=== PATIENT | female | born 1940 | race Caucasian/White ===

== ENCOUNTER 2024-09-01 13:08 | Emergency (ER) | payer MEDICARE, OTHER, MEDICAID ==
[2024-09-01 13:27] VITALS: BP 107/73; PULSE 83
[2024-09-01 13:29] LABS: BASOPHILS ABSOLUTE AUTO 0.01 10^3/uL (0.00-0.10); BASOPHILS PERCENT AUTO 0.2 % (0.0-1.0); EOSINOPHILS ABSOLUTE AUTO 0.11 10^3/uL (0.10-0.30); EOSINOPHILS PERCENT AUTO 2.1 % (1.0-3.0); HEMATOCRIT 31.7 % (37.0-47.0); HEMOGLOBIN 10.1 g/dL (12.0-16.0); LYMPHOCYTES ABSOLUTE AUTO 0.76 10^3/uL (1.00-4.00); LYMPHOCYTES PERCENT AUTO 14.7 % (20.0-40.0); MEAN CORPUSCULAR HGB CONC 31.9 g/dL (32.0-36.0); MEAN CORPUSCULAR VOLUME 94.1 fL (82.0-92.0); MEAN PLATELET VOLUME 9.5 fL (7.4-10.4); MONOCYTES ABSOLUTE AUTO 0.58 10^3/uL (0.10-0.80); MONOCYTES PERCENT AUTO 11.2 % (2.0-8.0); NEUTROPHILS PERCENT AUTO 71.8 % (50.0-70.0); PLATELET COUNT,PLT 190 10^3/uL (150-400); RED BLOOD CELL COUNT 3.37 10^6/uL (3.80-5.50); WHITE BLOOD CELL COUNT,WBC 5.16 10^3/uL (5.00-10.00)
[2024-09-01 13:43] LABS: ALBUMIN 2.35 g/dL (3.40-5.00); BILIRUBIN TOTAL 0.3 mg/dL (0.2-1.0); CALCIUM 8.4 mg/dL (8.7-10.3); CARBON DIOXIDE,CO2 28.4 mmol/L (21.0-32.0); CREATININE 0.61 mg/dL (0.51-1.17); EST CRCL DRUG DOSING (CG) 69.14 mL/min; POTASSIUM,K 4.4 mmol/L (3.5-5.1); PROTEIN TOTAL,TP 5.9 g/dL (6.4-8.2)
== END 2024-09-01 15:20 ==
LOC: KA.ED 13:08
DX: H53.2 Diplopia (principal); R42 Dizziness and giddiness; J44.9 Chronic obstructive pulmonary disease, unspecified; E66.9 Obesity, unspecified; Z68.21 Body mass index [BMI] 21.0-21.9, adult; Z90.49 Acquired absence of other specified parts of digestive tract; Z79.899 Other long term (current) drug therapy
CPT/HCPCS: 70450; 80053; 85025; 93005; 99285

== ENCOUNTER 2024-11-22 11:11 | Inpatient (IN) | payer MEDICARE, OTHER, MEDICAID ==
[2024-11-22] MEDS ORDERED: Sodium Chloride 0.9% 10 ML Syringe FLUSH PRN (11:15)
[2024-11-22 11:28] LABS: BASOPHILS ABSOLUTE AUTO 0.02 10^3/uL (0.00-0.10); BASOPHILS PERCENT AUTO 0.3 % (0.0-1.0); EOSINOPHILS ABSOLUTE AUTO 0.08 10^3/uL (0.10-0.30); HEMATOCRIT 32.8 % (37.0-47.0); HEMOGLOBIN 10.1 g/dL (12.0-16.0); IMMATURE GRAN ABSOLUTE AUTO 0.01 10^3/uL (0.00-0.04); IMMATURE GRAN PERCENT AUTO 0.1 % (0.0-0.4); LYMPHOCYTES ABSOLUTE AUTO 0.57 10^3/uL (1.00-4.00); LYMPHOCYTES PERCENT AUTO 7.1 % (20.0-40.0); MEAN CORPUSCULAR HEMOGLOBIN 29.9 pg (27.0-31.0); MEAN CORPUSCULAR HGB CONC 30.8 g/dL (32.0-36.0); MEAN PLATELET VOLUME 9.4 fL (7.4-10.4); MONOCYTES ABSOLUTE AUTO 0.73 10^3/uL (0.10-0.80); MONOCYTES PERCENT AUTO 9.1 % (2.0-8.0); NEUTROPHILS ABSOLUTE AUTO 6.58 10^3/uL (2.50-7.00); NEUTROPHILS PERCENT AUTO 82.4 % (50.0-70.0); PLATELET COUNT,PLT 187 10^3/uL (150-400); RED BLOOD CELL COUNT 3.38 10^6/uL (3.80-5.50); RED CELL DISTRIBUTION WIDTH 13.6 % (11.5-14.5); WHITE BLOOD CELL COUNT,WBC 7.99 10^3/uL (5.00-10.00)
[2024-11-22 11:46] LABS: ALBUMIN 2.2 g/dL (3.40-5.00); ANION GAP 14.3 mmol/L (5-15); BILIRUBIN TOTAL 0.4 mg/dL (0.2-1.0); CALCIUM 9.6 mg/dL (8.7-10.3); CARBON DIOXIDE,CO2 28.9 mmol/L (21.0-32.0); CREATININE 0.46 mg/dL (0.51-1.17); EST CRCL DRUG DOSING (CG) 88.27 mL/min; POTASSIUM,K 4.2 mmol/L (3.5-5.1); PROTEIN TOTAL,TP 6.5 g/dL (6.4-8.2)
[2024-11-22 11:47] LABS: LACTIC ACID 1.2 mmol/L (0.4-2.0)
[2024-11-22 12:01] LABS: CORONAVIRUS COVID-19 NAA NEGATIVE (NEGATIVE); INFLUENZA A NAA NEGATIVE (NEGATIVE); INFLUENZA B NAA NEGATIVE (NEGATIVE)
[2024-11-22] MEDS: Sodium Chloride 0.9% 100 ML IV SCH (12:29)
[2024-11-22] MEDS: Iopamidol 755 Mg/ML 100 ML Bottle IV ONE (12:29)
[2024-11-22] MEDS: Albuterol/Ipratropium 3.0-0.5 MG/3 ML Neb Soln NEB ONE (12:31)
[2024-11-22] MEDS ORDERED: Acetaminophen 325 MG Tab PO PRN (16:59)
[2024-11-22] MEDS ORDERED: Ondansetron 4 MG/2 ML SDV IV PRN (16:59)
[2024-11-22] MEDS ORDERED: Sennosides/Docusate Sodium 50-8.6 MG Tab PO PRN (17:17)
[2024-11-22] MEDS: Cefepime 2 GM in Sodium Chloride 0.9% 50 ML IV SCH (19:17)
[2024-11-22] MEDS: guaiFENesin 600 MG Tab.ER PO SCH (21:06)
[2024-11-22] MEDS: Montelukast 10 MG Tab PO SCH (21:08)
[2024-11-22] MEDS: Melatonin 3 MG Tab PO SCH (21:08)
[2024-11-22] MEDS: Oxybutynin 5 MG Tab.ER PO SCH (21:08)
[2024-11-22] MEDS: Gabapentin 300 MG Cap PO SCH (21:08)
[2024-11-22] MEDS: Magnesium Oxide 500 MG Tab PO SCH (21:09)
[2024-11-22] MEDS: Doxycycline Monohydrate 100 MG Cap PO SCH (21:25)
[2024-11-22] MEDS ORDERED: methylPREDNISolone Sod Succ 40 MG in Sodium Chloride 0.9% 100 ML IV SCH (22:00)
[2024-11-22] MEDS: methylPREDNISolone Sodium Succinate 40 MG/1 ML SDV IVPUSH SCH (22:47)
[2024-11-22] MEDS: Albuterol/Ipratropium 3.0-0.5 MG/3 ML Neb Soln NEB SCH (23:00)
[2024-11-23] MEDS: Pantoprazole 40 MG Tab.CR PO SCH (07:24)
[2024-11-23 07:42] LABS: ANION GAP 12.2 mmol/L (5-15); CALCIUM 9.4 mg/dL (8.7-10.3); CREATININE 0.39 mg/dL (0.51-1.17); EST CRCL DRUG DOSING (CG) 104.11 mL/min; POTASSIUM,K 5.2 mmol/L (3.5-5.1)
[2024-11-23 07:49] LABS: HEMATOCRIT 29.7 % (37.0-47.0); HEMOGLOBIN 9.8 g/dL (12.0-16.0); MEAN CORPUSCULAR HEMOGLOBIN 30.1 pg (27.0-31.0); MEAN CORPUSCULAR VOLUME 91.1 fL (82.0-92.0); MEAN PLATELET VOLUME 9.1 fL (7.4-10.4); PLATELET COUNT,PLT 198 10^3/uL (150-400); RED BLOOD CELL COUNT 3.26 10^6/uL (3.80-5.50); RED CELL DISTRIBUTION WIDTH 13.4 % (11.5-14.5); WHITE BLOOD CELL COUNT,WBC 6.16 10^3/uL (5.00-10.00)
[2024-11-23 08:19] LABS: SLIDE REVIEW YES
[2024-11-23 08:20] LABS: BAND PERCENT MAN 0 % (4-12); BASOPHILS PERCENT MAN 0 % (0-1); EOSINOPHILS PERCENT MAN 0 % (1-3); LYMPHOCYTES % ATYPICAL MANUAL 0; LYMPHOCYTES PERCENT MAN 7 % (20-40); MONOCYTES PERCENT MAN 0 % (2-8); SEG NEUTROPHILS PERCENT MAN 93 % (50-70)
[2024-11-23 08:21] LABS: ELLIPTOCYTES 1+ SLIGHT
[2024-11-23 08:22] LABS: GIANT PLATELETS FEW; PLATELET COUNT ESTIMATE ADEQUATE
[2024-11-23] MEDS: Calcium Polycarbophil 625 MG Tab PO SCH (08:39)
[2024-11-23] MEDS: PROPYLENE GLYCOL EYEBOTH SCH (08:39)
[2024-11-23] MEDS: GLYCERIN EYEBOTH SCH (08:39)
[2024-11-23] MEDS: Aspirin 81 MG Tab.EC PO SCH (08:39)
[2024-11-23] MEDS: Furosemide 20 MG Tab PO SCH (08:40)
[2024-11-23] MEDS: Ferrous Sulfate 325 MG Tab PO SCH (08:40)
[2024-11-23] MEDS: DULoxetine 30 MG Cap PO SCH (08:40)
[2024-11-23] MEDS ORDERED: Calcium Polycarbophil 625 MG Tab PO SCH (09:00)
[2024-11-24 08:02] LABS: ANION GAP 8.9 mmol/L (5-15); CALCIUM 9.4 mg/dL (8.7-10.3); CARBON DIOXIDE,CO2 32.4 mmol/L (21.0-32.0); CREATININE 0.46 mg/dL (0.51-1.17); EST CRCL DRUG DOSING (CG) 88.27 mL/min; MAGNESIUM 1.7 mg/dL (1.8-2.4); POTASSIUM,K 5.3 mmol/L (3.5-5.1)
[2024-11-25] MEDS: predniSONE 20 MG Tab PO SCH (07:32)
[2024-11-26 08:33] LABS: BASOPHILS ABSOLUTE AUTO 0.01 10^3/uL (0.00-0.10); BASOPHILS PERCENT AUTO 0.2 % (0.0-1.0); EOSINOPHILS ABSOLUTE AUTO 0.06 10^3/uL (0.10-0.30); EOSINOPHILS PERCENT AUTO 1.3 % (1.0-3.0); HEMATOCRIT 34.8 % (37.0-47.0); HEMOGLOBIN 10.9 g/dL (12.0-16.0); IMMATURE GRAN ABSOLUTE AUTO 0.13 10^3/uL (0.00-0.04); IMMATURE GRAN PERCENT AUTO 2.8 % (0.0-0.4); LYMPHOCYTES ABSOLUTE AUTO 0.49 10^3/uL (1.00-4.00); LYMPHOCYTES PERCENT AUTO 10.5 % (20.0-40.0); MEAN CORPUSCULAR HEMOGLOBIN 30.2 pg (27.0-31.0); MEAN CORPUSCULAR HGB CONC 31.3 g/dL (32.0-36.0); MEAN CORPUSCULAR VOLUME 96.4 fL (82.0-92.0); MEAN PLATELET VOLUME 9.1 fL (7.4-10.4); MONOCYTES ABSOLUTE AUTO 0.66 10^3/uL (0.10-0.80); MONOCYTES PERCENT AUTO 14.2 % (2.0-8.0); PLATELET COUNT,PLT 338 10^3/uL (150-400); RED BLOOD CELL COUNT 3.61 10^6/uL (3.80-5.50); RED CELL DISTRIBUTION WIDTH 13.2 % (11.5-14.5); WHITE BLOOD CELL COUNT,WBC 4.65 10^3/uL (5.00-10.00)
[2024-11-26 08:48] LABS: ANION GAP 10.5 mmol/L (5-15); CALCIUM 9.7 mg/dL (8.7-10.3); CARBON DIOXIDE,CO2 31.9 mmol/L (21.0-32.0); CREATININE 0.48 mg/dL (0.51-1.17); EST CRCL DRUG DOSING (CG) 84.59 mL/min; POTASSIUM,K 4.4 mmol/L (3.5-5.1)
[2024-11-26 13:31] VITALS: BP 99/57; PULSE 80
== END 2024-11-26 13:30 | DRG 193 ==
LOC: KA.ED 11:11 → KA.MS 15:10
PROVIDERS: ADMIT Hospitalist; ATTEND Hospitalist
DX: J18.9 Pneumonia, unspecified organism (principal); J96.01 Acute respiratory failure with hypoxia; J44.0 Chronic obstructive pulmonary disease with (acute) lower respiratory infection; H26.9 Unspecified cataract; H91.90 Unspecified hearing loss, unspecified ear; J90 Pleural effusion, not elsewhere classified; K21.9 Gastro-esophageal reflux disease without esophagitis; M19.90 Unspecified osteoarthritis, unspecified site; M81.0 Age-related osteoporosis without current pathological fracture; F15.90 Other stimulant use, unspecified, uncomplicated; H53.9 Unspecified visual disturbance; E88.09 Other disorders of plasma-protein metabolism, not elsewhere classified; R09.89 Other specified symptoms and signs involving the circulatory and respiratory systems; R79.89 Other specified abnormal findings of blood chemistry; E66.9 Obesity, unspecified; D50.9 Iron deficiency anemia, unspecified; D64.9 Anemia, unspecified; Z66 Do not resuscitate; I71.21 Aneurysm of the ascending aorta, without rupture; Z79.2 Long term (current) use of antibiotics; Z98.49 Cataract extraction status, unspecified eye; Z86.16 Personal history of COVID-19; Z99.81 Dependence on supplemental oxygen; Z79.51 Long term (current) use of inhaled steroids; Z79.1 Long term (current) use of non-steroidal anti-inflammatories (NSAID); Z79.4 Long term (current) use of insulin; Z68.21 Body mass index [BMI] 21.0-21.9, adult; Z90.49 Acquired absence of other specified parts of digestive tract; Z98.890 Other specified postprocedural states; Z79.899 Other long term (current) drug therapy; Z79.82 Long term (current) use of aspirin
CPT/HCPCS: 0240U; 36415; 71045; 71275; 80048; 80053; 83605; 83735; 83880; 84484; 85025; 85379; 87040; 93005; 93010; 94640; 99223-GT; 99232-GT; 99233-GT; 99239-GT; 99284; 99285; A9270-GY; J0692; J2919; J3490; J7512; J7620-GY; Q3014; Q9967

== ENCOUNTER 2025-01-03 10:13 | Emergency (ER) | payer MEDICARE, OTHER, MEDICAID ==
[2025-01-03] MEDS ORDERED: Sodium Chloride 0.9% 10 ML Syringe FLUSH PRN (10:28)
[2025-01-03 10:39] VITALS: BP 110/74; PULSE 104
[2025-01-03 10:44] LABS: BASOPHILS ABSOLUTE AUTO 0.02 10^3/uL (0.00-0.10); BASOPHILS PERCENT AUTO 0.2 % (0.0-1.0); EOSINOPHILS ABSOLUTE AUTO 0.05 10^3/uL (0.10-0.30); EOSINOPHILS PERCENT AUTO 0.6 % (1.0-3.0); HEMATOCRIT 35.1 % (37.0-47.0); HEMOGLOBIN 11.1 g/dL (12.0-16.0); IMMATURE GRAN ABSOLUTE AUTO 0.01 10^3/uL (0.00-0.04); IMMATURE GRAN PERCENT AUTO 0.1 % (0.0-0.4); LYMPHOCYTES ABSOLUTE AUTO 0.71 10^3/uL (1.00-4.00); LYMPHOCYTES PERCENT AUTO 8.6 % (20.0-40.0); MEAN CORPUSCULAR HEMOGLOBIN 28.9 pg (27.0-31.0); MEAN CORPUSCULAR HGB CONC 31.6 g/dL (32.0-36.0); MEAN CORPUSCULAR VOLUME 91.4 fL (82.0-92.0); MEAN PLATELET VOLUME 8.9 fL (7.4-10.4); MONOCYTES ABSOLUTE AUTO 0.73 10^3/uL (0.10-0.80); MONOCYTES PERCENT AUTO 8.8 % (2.0-8.0); NEUTROPHILS ABSOLUTE AUTO 6.77 10^3/uL (2.50-7.00); NEUTROPHILS PERCENT AUTO 81.7 % (50.0-70.0); PLATELET COUNT,PLT 207 10^3/uL (150-400); RED BLOOD CELL COUNT 3.84 10^6/uL (3.80-5.50); RED CELL DISTRIBUTION WIDTH 13.5 % (11.5-14.5); WHITE BLOOD CELL COUNT,WBC 8.29 10^3/uL (5.00-10.00)
[2025-01-03 11:05] LABS: ALBUMIN 2.62 g/dL (3.40-5.00); ANION GAP 15.2 mmol/L (5-15); BILIRUBIN TOTAL 0.4 mg/dL (0.2-1.0); CALCIUM 9.8 mg/dL (8.7-10.3); CARBON DIOXIDE,CO2 28.9 mmol/L (21.0-32.0); CREATININE 0.49 mg/dL (0.51-1.17); EST CRCL DRUG DOSING (CG) 78.91 mL/min; POTASSIUM,K 4.1 mmol/L (3.5-5.1); PROTEIN TOTAL,TP 6.9 g/dL (6.4-8.2)
[2025-01-03] MEDS: Ondansetron 4 MG/2 ML SDV IVPUSH ONE (11:22)
[2025-01-03] MEDS: Sodium Chloride 0.9% 500 ML IV SCH (12:48)
== END 2025-01-03 13:50 ==
LOC: KA.ED 10:13
DX: A08.4 Viral intestinal infection, unspecified (principal); J44.0 Chronic obstructive pulmonary disease with (acute) lower respiratory infection; Z79.51 Long term (current) use of inhaled steroids; Z79.899 Other long term (current) drug therapy; Z79.4 Long term (current) use of insulin
CPT/HCPCS: 36415; 71045; 80053; 83605; 83880; 84484; 85025; 87428-QW; 93005; 93010; 96361; 96374; 99284; 99285-25; J2405; J7040

== ENCOUNTER 2025-01-31 14:19 | Emergency (ER) | payer MEDICARE, OTHER, MEDICAID ==
[2025-01-31] MEDS: Sodium Chloride 0.9% 1,000 ML IV ONE (14:52)
[2025-01-31] MEDS: Ondansetron 4 MG/2 ML SDV IVPUSH ONE (14:52)
[2025-01-31 14:55] LABS: BASOPHILS ABSOLUTE AUTO 0.03 10^3/uL (0.00-0.10); BASOPHILS PERCENT AUTO 0.6 % (0.0-1.0); EOSINOPHILS ABSOLUTE AUTO 0.06 10^3/uL (0.10-0.30); EOSINOPHILS PERCENT AUTO 1.1 % (1.0-3.0); HEMATOCRIT 34.8 % (37.0-47.0); HEMOGLOBIN 10.8 g/dL (12.0-16.0); IMMATURE GRAN ABSOLUTE AUTO 0.01 10^3/uL (0.00-0.04); IMMATURE GRAN PERCENT AUTO 0.2 % (0.0-0.4); LYMPHOCYTES ABSOLUTE AUTO 0.86 10^3/uL (1.00-4.00); LYMPHOCYTES PERCENT AUTO 16.4 % (20.0-40.0); MEAN CORPUSCULAR HEMOGLOBIN 29.3 pg (27.0-31.0); MEAN CORPUSCULAR VOLUME 94.6 fL (82.0-92.0); MEAN PLATELET VOLUME 10.2 fL (7.4-10.4); MONOCYTES ABSOLUTE AUTO 0.64 10^3/uL (0.10-0.80); MONOCYTES PERCENT AUTO 12.2 % (2.0-8.0); NEUTROPHILS ABSOLUTE AUTO 3.63 10^3/uL (2.50-7.00); NEUTROPHILS PERCENT AUTO 69.5 % (50.0-70.0); PLATELET COUNT,PLT 191 10^3/uL (150-400); RED BLOOD CELL COUNT 3.68 10^6/uL (3.80-5.50); WHITE BLOOD CELL COUNT,WBC 5.23 10^3/uL (5.00-10.00)
[2025-01-31 15:19] LABS: ALBUMIN 2.84 g/dL (3.40-5.00); BILIRUBIN TOTAL 0.4 mg/dL (0.2-1.0); C-REACTIVE PROTEIN 3.83 mg/dL (0.00-0.50); CALCIUM 9.8 mg/dL (8.7-10.3); CARBON DIOXIDE,CO2 27.2 mmol/L (21.0-32.0); CREATININE 0.47 mg/dL (0.51-1.17); EST CRCL DRUG DOSING (CG) 76.34 mL/min; MAGNESIUM 1.5 mg/dL (1.8-2.4); POTASSIUM,K 4.2 mmol/L (3.5-5.1)
[2025-01-31] MEDS: Magnesium Sulf/Wat 2 GM/50 mL 2 GM in Premix Bag 1 BAG IV ONE (15:24)
[2025-01-31 15:57] LABS: APPEARANCE,URINE CLEAR (CLEAR); BILIRUBIN,URINE NEGATIVE (NEGATIVE); COLOR,URINE YELLOW (YELLOW); GLUCOSE,URINE NEGATIVE (NEGATIVE); KETONES,URINE >=160 mg/dL (NEGATIVE); LEUKOCYTE ESTERASE,URINE NEGATIVE (NEGATIVE); NITRITE,URINE NEGATIVE (NEGATIVE); OCCULT BLOOD,URINE NEGATIVE (NEGATIVE); PH,URINE 6.5 (5.0-9.0); PROTEIN,URINE 30 mg/dL (NEGATIVE); UROBILINOGEN,URINE 0.2 E.U./dL (0.2-1.0)
[2025-01-31 16:06] LABS: BACTERIA,URINE RARE /HPF (NONE TO FEW); EPITHELIAL CELLS,URINE RARE /LPF; MUCUS,URINE FEW /LPF (NEGATIVE); RBC,URINE 0-5 /HPF (0-5)
[2025-01-31 20:03] VITALS: BP 103/61; PULSE 79
== END 2025-01-31 16:45 ==
LOC: KA.ED 14:19
DX: E86.0 Dehydration (principal); Z79.82 Long term (current) use of aspirin; Z79.899 Other long term (current) drug therapy; Z79.51 Long term (current) use of inhaled steroids
CPT/HCPCS: 71045; 80053; 81001; 83605; 83735; 83880; 85025; 86140; 93005; 96361; 96365; 96375; 99285-25; J2405; J3475; J7030